=== PATIENT | female | born 1965 | race Caucasian/White ===

== ENCOUNTER 2016-11-27 23:57 | Emergency (ER) | payer OTHER ==
--- NOTE | 2016-11-28 02:07 | ED ORDER SUMMARY ---
..... Patient: APRIL HALEY OrderSheet [facility] VisitID: [id number] [address] [place] [address] 51y, F Registration Date/Time: 11/28/2016 ORDER SHEET Weight: 90.7 kg (stated) Allergies: Penicillins GENERAL ORDERS: Finger Left (2nd) Urgent (00:19 11/28/2016 Byron Cochran per protocol) (Ack 0:26 RKaruga) (1:00 GUnger) Splint (UE) (Left) (Metal / foam) (02:11/28/2016 Fang Borden) (2:20 Tone) MEDICATION ORDERS: IV FLUIDS: ORDER SHEET NOTES: [Electronically signed by Aziza Campbell R.N. (02:11/28/2016)] [Electronically signed by Gian London Dr. (10:09 11/28/2016)] [Electronically locked/signed by Aziza Campbell R.N. (:11/28/2016)]
--- NOTE | 2016-11-28 02:07 | ED CLINICAL REPORT ---
Clinical Report - Physicians/Mid Levels [facility] [address] [place] [address] 11/28/2016 0:04 [id number] Time Seen: 00:30; initial patient contact. Arrived- By private vehicle. Historian- patient. HISTORY OF PRESENT ILLNESS Chief Complaint: Injury to the left middle finger. The injury happened just prior to arrival. Occurred at work. The patient sustained a crush injury- dropped heavy object on hand. Patient is experiencing mild pain. Patient denies injury to the head or neck. REVIEW OF SYSTEMS No swelling, tingling or numbness. All systems otherwise negative, except as recorded above. PAST HISTORY Adenoidectomy. . Knee Surgery. Tonsillectomy. Tubal Ligation. The patient's dominant hand is the right. Medications: None. Allergies: Penicillins. Definite Moderate(hives) (breaks out in hives with injection can take PCN pills). SOCIAL HISTORY Current every day smoker. ADDITIONAL NOTES The nursing notes have been reviewed. PHYSICAL EXAM Vital Signs: 11/28/2016 00:11 BP: 127/72. HR: 65. RR: 18. O2 saturation: 100%. Temp: 98.2 F. Pain level now: 4/10. Have been reviewed as normal. Appearance: Alert. Oriented X3. No acute distress. Skin: Skin warm and dry. Skin intact. Extremities: Left middle finger: of the DIP joint: limited movement secondary to pain (diminished flexion and extension). Neurovascular intact distally. Neuro, Vascular and Tendons: Vascular status intact. Sensation intact. Motor intact. Tendon function intact. Neuro: No motor deficit. No sensory deficit. LABS, X-RAYS, AND EKG Lt UE Digits X-ray: (Mild lateral displacement of the 3rd digit distal phalynx). Views: AP, lateral and oblique. Technique: good. The X-rays were independently viewed by me and interpreted contemporaneously by me. Prior films were not available for comparison. PROGRESS AND PROCEDURES Digital Nerve Block - Finger: Time: 02:04. Per protocol, time-out completed immediately before the procedure. Digital nerve block performed on the left middle finger. Web space approach utilized. Landmarks identified. Skin prepped. Total volume of 3 mL 2% Lidocaine and 0.5% Marcaine infiltrated using a 27-gauge needle. Patient cooperative during procedure. No complications encountered. Excellent anesthesia achieved. Course of Care: Attempted a reduction, not successful, low suspicion for actual dislocation, likely a ligamentous injury. Disposition: Discharged home in good and improved condition. Condition: good. CLINICAL IMPRESSION Dislocation of the distal interphalangeal joint of the left middle finger. INSTRUCTIONS Apply ice for 20 minutes four times a day until better. Don't apply ice directly to skin. Prescription Medications: Hydrocodone/APAP 5mg / 325mg: take 1 orally every 6 hours as needed for pain. Dispense fifteen (15). No refill. Diclofenac 50 mg tablets: take 1 tablet orally every 8 hours as needed for pain or stiffness. Dispense thirty (30). No refill. Follow-up with: [facility], , [address], , [place], [id number] Follow up in about two days. Call for an appointment. (Electronically signed by Gina London Dr. 11/28/2016 10:09)
--- NOTE | 2016-11-28 02:07 | ED CLINICAL REPORT ---
Clinical Report - Physicians/Mid Levels [facility] [address] [place] [address] 11/28/2016 0:04 [id number] Time Seen: 00:30; initial patient contact. Arrived- By private vehicle. Historian- patient. HISTORY OF PRESENT ILLNESS Chief Complaint: Injury to the left middle finger. The injury happened just prior to arrival. Occurred at work. The patient sustained a crush injury- dropped heavy object on hand. Patient is experiencing mild pain. Patient denies injury to the head or neck. REVIEW OF SYSTEMS No swelling, tingling or numbness. All systems otherwise negative, except as recorded above. PAST HISTORY Adenoidectomy. . Knee Surgery. Tonsillectomy. Tubal Ligation. The patient's dominant hand is the right. Medications: None. Allergies: Penicillins. Definite Moderate(hives) (breaks out in hives with injection can take PCN pills). SOCIAL HISTORY Current every day smoker. ADDITIONAL NOTES The nursing notes have been reviewed. PHYSICAL EXAM Vital Signs: 11/28/2016 00:11 BP: 127/72. HR: 65. RR: 18. O2 saturation: 100%. Temp: 98.2 F. Pain level now: 4/10. Have been reviewed as normal. Appearance: Alert. Oriented X3. No acute distress. Skin: Skin warm and dry. Skin intact. Extremities: Left middle finger: of the DIP joint: limited movement secondary to pain (diminished flexion and extension). Neurovascular intact distally. Neuro, Vascular and Tendons: Vascular status intact. Sensation intact. Motor intact. Tendon function intact. Neuro: No motor deficit. No sensory deficit. LABS, X-RAYS, AND EKG Lt UE Digits X-ray: (Mild lateral displacement of the 3rd digit distal phalynx). Views: AP, lateral and oblique. Technique: good. The X-rays were independently viewed by me and interpreted contemporaneously by me. Prior films were not available for comparison. PROGRESS AND PROCEDURES Digital Nerve Block - Finger: Time: 02:04. Per protocol, time-out completed immediately before the procedure. Digital nerve block performed on the left middle finger. Web space approach utilized. Landmarks identified. Skin prepped. Total volume of 3 mL 2% Lidocaine and 0.5% Marcaine infiltrated using a 27-gauge needle. Patient cooperative during procedure. No complications encountered. Excellent anesthesia achieved. Course of Care: Attempted a reduction, not successful, low suspicion for actual dislocation, likely a ligamentous injury. Disposition: Discharged home in good and improved condition. Condition: good. CLINICAL IMPRESSION Dislocation of the distal interphalangeal joint of the left middle finger. INSTRUCTIONS Apply ice for 20 minutes four times a day until better. Don't apply ice directly to skin. Prescription Medications: Hydrocodone/APAP 5mg / 325mg: take 1 orally every 6 hours as needed for pain. Dispense fifteen (15). No refill. Diclofenac 50 mg tablets: take 1 tablet orally every 8 hours as needed for pain or stiffness. Dispense thirty (30). No refill. Follow-up with: [facility], , [address], , [place], [phone] Follow up in about two days. Call for an appointment. (Electronically signed by Gian London Dr. 11/28/2016 10:09)
--- NOTE | 2016-11-28 02:07 | ED NURSING NOTES ---
Clinical Report - Nurses [place] [address] [place] [address] 11/28/2016 0:04 [id number] Triage time 00:11. Acuity: LEVEL 4. Chief Complaint: INJURY TO LEFT HAND. --00:17 Aziza Campbell R.N. 00:11 11/28/16. BP: 127/72 taken on the right arm, while sitting. HR: 65 (regular and normal rate). RR: 18 (regular and unlabored). O2 saturation: 100% on room air. Temp: 98.2 F (oral). Pain level now: 10/02. --00:17 Aziza Campbell R.N. Weight: 90.7 kg stated. Height/Length: 67 inches Per Patient. BMI: 31.3. --00:13 Aziza Campbell R.N. Medications None. --00:14 Aziza Campbell R.N. Allergies Penicillins. Definite Moderate(hives) (breaks out in hives with injection can take PCN pills) --00:15 Aziza Campbell R.N. History Arrived by private vehicle. Historian: patient. Unaccompanied. This occurred (at about 2200 PM). Mechanism of injury: she sustained a crush injury (crushed between lots of thick oak planks at work). 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 PAST MEDICAL HX: Tetanus status: unknown. Immunizations: up-to-date. The patient is post-menopausal. SOCIAL HX: Heavy tobacco smoker (cigarette)- 1 pack per day. No alcohol use or drug use. No infectious disease exposure. ABUSE ASSESSMENT: No report of abuse. SELF HARM ASSESSMENT: A self harm assessment was performed. The patient answered "no" to the question "Have you recently felt down, depressed, or hopeless?", "Have you noticed less interest or pleasure in doing things?", "Do you have thoughts of harming or killing yourself?", "Are you here because you tried to hurt yourself?", "Have you ever tried to hurt yourself before today?", "Have you recently had thoughts about harming or killing others?" and "Do you have any dangerous items in your possession?". FALL RISK ASSESSMENT: Fall risk assessment completed. No fall risk identified. NUTRITIONAL RISK ASSESSMENT: The nutritional risk assessment revealed no deficiencies. FUNCTIONAL ASSESSMENT: Functional assessment: no impairments noted. LEARNING NEEDS ASSESSMENT: The learning needs assessment revealed no barriers. SKIN INTEGRITY ASSESSMENT: Skin integrity risk assessment completed. No skin integrity risk identified. --00:17 Aziza Campbell R.N. ADDITIONAL SURGERIES: Adenoidectomy. . Knee Surgery. Tonsillectomy. Tubal Ligation. --00:16 Aziza Campbell R.N. Interventions ID band on patient. --00:17 Aziza Campbell R.N. PHYSICAL ASSESSMENT Ambulatory to room. GENERAL / NEURO / PSYCH: Oriented X 4. Alert. Appears in no acute distress. EXTREMITIES: Capillary refill is less than 2 seconds in the extremities. Extremity pulses are within normal limits. Extremities exhibit normal ROM. Neuro-vascular status intact to the extremity. Left hand: deformity (left middle finger). SKIN: Skin intact. Skin is warm and dry. --00:18 Aziza Campbell R.N. NURSING PROGRESS NOTES Two patient identifiers checked. Call light placed in reach. Side rails up x 1. Bed placed in lowest position. Brakes of bed on. Patient ready for evaluation- chart flagged. --00:18 Aziza Campbell R.N. Metal and aluminum-foam finger splint applied to left middle finger by [employer] (0215). --02:21 Michelle Escobar. DISPOSITION / DISCHARGE Condition at departure: improved and stable. No learning barriers present. Discharge instructions provided and reviewed with the patient. Reviewed medication(s) side effects, precautions, dosing and course information. Prescription(s) given to the patient. Reviewed referral to an orthopedic surgeon. Patient verbalized understanding. Written instructions provided in Haitian. The patient was discharged home and unaccompanied at time of discharge. She left the Emergency Department ambulatory and via private vehicle. Patient driving. --02:27 Aziza Campbell R.N. 02:25 11/28/16. BP: 137/61. HR: 82 (regular and normal rate). RR: 18 (regular and unlabored). O2 saturation: 100% on room air. Temp: deferred. Pain level now: 08/04. --02:27 Aziza Campbell R.N. Departure time: 220. --02:27 Aziza Campbell R.N. Locked/Released at 11/28/2016 2:27 by Aziza Campbell R.N.
--- NOTE | 2016-11-28 02:07 | ED NURSING NOTES ---
Clinical Report - Nurses [place] [address] [place] [address] 11/28/2016 0:04 [id number] TRI[facility] Triage time 00:11. Acuity: LEVEL 4. Chief Complaint: INJURY TO LEFT HAND. --00:17 Aziza Campbell R.N. 00:11 11/28/16. BP: 127/72 taken on the right arm, while sitting. HR: 65 (regular and normal rate). RR: 18 (regular and unlabored). O2 saturation: 100% on room air. Temp: 98.2 F (oral). Pain level now: 10/02. --00:17 Aziza Campbell R.N. Weight: 90.7 kg stated. Height/Length: 67 inches Per Patient. BMI: 31.3. --00:13 Aziza Campbell R.N. Medications None. --00:14 Aziza Campbell R.N. Allergies Penicillins. Definite Moderate(hives) (breaks out in hives with injection can take PCN pills) --00:15 Aziza Campbell R.N. History Arrived by private vehicle. Historian: patient. Unaccompanied. This occurred (at about 2200 PM). Mechanism of injury: she sustained a crush injury (crushed between lots of thick oak planks at work). 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 PAST MEDICAL HX: Tetanus status: unknown. Immunizations: up-to-date. The patient is post-menopausal. SOCIAL HX: Heavy tobacco smoker (cigarette)- 1 pack per day. No alcohol use or drug use. No infectious disease exposure. ABUSE ASSESSMENT: No report of abuse. SELF HARM ASSESSMENT: A self harm assessment was performed. The patient answered "no" to the question "Have you recently felt down, depressed, or hopeless?", "Have you noticed less interest or pleasure in doing things?", "Do you have thoughts of harming or killing yourself?", "Are you here because you tried to hurt yourself?", "Have you ever tried to hurt yourself before today?", "Have you recently had thoughts about harming or killing others?" and "Do you have any dangerous items in your possession?". FALL RISK ASSESSMENT: Fall risk assessment completed. No fall risk identified. NUTRITIONAL RISK ASSESSMENT: The nutritional risk assessment revealed no deficiencies. FUNCTIONAL ASSESSMENT: Functional assessment: no impairments noted. LEARNING NEEDS ASSESSMENT: The learning needs assessment revealed no barriers. SKIN INTEGRITY ASSESSMENT: Skin integrity risk assessment completed. No skin integrity risk identified. --00:17 Aziza Campbell R.N. ADDITIONAL SURGERIES: Adenoidectomy. . Knee Surgery. Tonsillectomy. Tubal Ligation. --00:16 Aziza Campbell R.N. Interventions ID band on patient. --00:17 Aziza Campbell R.N. PHYSICAL ASSESSMENT Ambulatory to room. GENERAL / NEURO / PSYCH: Oriented X 4. Alert. Appears in no acute distress. EXTREMITIES: Capillary refill is less than 2 seconds in the extremities. Extremity pulses are within normal limits. Extremities exhibit normal ROM. Neuro-vascular status intact to the extremity. Left hand: deformity (left middle finger). SKIN: Skin intact. Skin is warm and dry. --00:18 Aziza Campbell R.N. NURSING PROGRESS NOTES Two patient identifiers checked. Call light placed in reach. Side rails up x 1. Bed placed in lowest position. Brakes of bed on. Patient ready for evaluation- chart flagged. --00:18 Aziza Campbell R.N. Metal and aluminum-foam finger splint applied to left middle finger by [employer] (0215). --02:21 Michelle Escobar. DISPOSITION / DISCHARGE Condition at departure: improved and stable. No learning barriers present. Discharge instructions provided and reviewed with the patient. Reviewed medication(s) side effects, precautions, dosing and course information. Prescription(s) given to the patient. Reviewed referral to an orthopedic surgeon. Patient verbalized understanding. Written instructions provided in Danish. The patient was discharged home and unaccompanied at time of discharge. She left the Emergency Department ambulatory and via private vehicle. Patient driving. --02:27 Aziza Campbell R.N. 02:25 11/28/16. BP: 137/61. HR: 82 (regular and normal rate). RR: 18 (regular and unlabored). O2 saturation: 100% on room air. Temp: deferred. Pain level now: 08/04. --02:27 Aziza Campbell R.N. Departure time: 220. --02:27 Aziza Campbell R.N. Locked/Released at 11/28/2016 2:27 by Aziza Campbell R.N.
--- NOTE | 2016-11-28 02:07 | ED ORDER SUMMARY ---
..... Patient: APRIL HALEY OrderSheet [facility] VisitID: [id number] [address] [place] [address] 51y, F Registration Date/Time: 11/28/2016 ORDER SHEET Weight: 90.7 kg (stated) Allergies: Penicillins GENERAL ORDERS: Finger Left (2nd) Urgent (00:19 11/28/2016 Byron Cochran per protocol) (Ack 0:26 RKaruga) (1:00 GUnger) Splint (UE) (Left) (Metal / foam) (02:11/28/2016 Fang Borden) (2:20 Tone) MEDICATION ORDERS: IV FLUIDS: ORDER SHEET NOTES: [Electronically signed by Aziza Campbell R.N. (02:11/28/2016)] [Electronically signed by Gian London Dr. (10:09 11/28/2016)] [Electronically locked/signed by Aziza Campbell R.N. (:11/28/2016)]
--- NOTE | 2016-11-28 06:44 | DIAGNOSTIC IMAGING REPORT ---
PROCEDURE: XR FINGER - LEFT (third finger). INDICATION: TRAUMA/INJURY TECHNIQUE: Three views. COMPARISON: None. FINDINGS: There are mild degenerative changes of the distal interphalangeal joint. Osseous structures and joint spaces are otherwise normal. No evidence of acute process or fracture. IMPRESSION: 1. Negative left third finger.
--- NOTE | 2016-11-28 10:09 | ED MED RECONCILIATION SUMMARY ---
Patient: APRIL HALEY Medication Reconciliation Report [facility] VisitID: [id number] [address] [place] [address] 51y, F Registration Date/Time: 11/28/2016 Weight: 90.7 kg Height/Length: 67 in. BMI: 31.3 ALLERGIES: Penicillins The patient's Home Medications are listed below: NONE. The source(s) of the original Home Medication information: Not obtained. The following Medications were given to the patient in the Emergency Department: None. The following Medications were prescribed to the patient: Hydrocodone/APAP 5mg / 325mg: take 1 orally every 6 hours as needed for pain. Dispense fifteen (15). No refill. -- Gian London Dr. Diclofenac 50 mg tablets: take 1 tablet orally every 8 hours as needed for pain or stiffness. Dispense thirty (30). No refill. -- Gian London Dr.
--- NOTE | 2016-11-28 10:09 | ED MAR SUMMARY ---
..... Medication Administration Record [facility] [address] [place], [place] [id number] Patient: JANNY HALEYKIMO Ramirez Visit ID: [id number] 51y, F Weight: 90.7 kg Height/Length: 67 in BMI: 31.3 ALLERGIES: Penicillins
--- NOTE | 2016-11-28 10:09 | ED MAR SUMMARY ---
..... Medication Administration Record [facility] [address] [place], [place] [id number] Patient: JANNY HALEYKIMO Ramirez Visit ID: [id number] 51y, F Weight: 90.7 kg Height/Length: 67 in BMI: 31.3 ALLERGIES: Penicillins
--- NOTE | 2016-11-28 10:09 | ED DISCHARGE INSTRUCTIONS ---
Patient: APRIL HALEY General Instructions [facility] VisitID: [id number] [address] [place], [place] [id number] 51y, F Registration Date/Time: 11/28/2016 Dislocation of the distal interphalangeal joint of the left middle finger. INSTRUCTIONS Apply ice for 20 minutes four times a day until better. Don't apply ice directly to skin. Prescription Medications: Hydrocodone/APAP 5mg / 325mg: take 1 orally every 6 hours as needed for pain. Dispense fifteen (15). No refill. Diclofenac 50 mg tablets: take 1 tablet orally every 8 hours as needed for pain or stiffness. Dispense thirty (30). No refill. Follow-up with: [facility], , [address] [place], [id number] Follow up in about two days. Call for an appointment. ADDITIONAL INFORMATION Dislocation:Finger [Reduced] A dislocated finger occurs when the ligaments that hold the joint together are torn allowing the bones to move apart and become stuck out of place. This causes pain, swelling, and bruising. Sometimes there is also a small "chip" fracture. Once the joint is aligned again, it will take about six weeks for the ligaments to heal. During this time, the finger should be protected from re-injury. "Saravanan Tape" secures the injured finger to the one next to it. Saravanan tape allows motion of the joint, while protecting it from dislocating again. Saravanan tape can be left in place for up to six weeks. Hand exercises may be prescribed at your follow-up visit to speed healing and maintain function. Most finger dislocations regain full function. But, it may take 12-18 months before all discomfort and swelling go away and full function returns. Home Care: 1) Keep your hand elevated to reduce pain and swelling. When sitting or lying down elevate your arm above the level of your heart. You can do this by placing your arm on a pillow that rests on your chest or on a pillow at your side. This is most important during the first 48 hours after injury. 2) Apply an ice pack (ice cubes in a plastic bag, wrapped in a towel) over the injured area for 20 minutes every 1-2 hours the first day. Continue with ice packs 3-4 times a day for the next two days, then as needed for the relief of pain and swelling. 3) If you have a removable splint , you may take it off to bathe, then reapply it. If you have a permanent splint , cover the entire hand with a plastic bag and seal it at the top with a rubber band before bathing. 4) If saravanan tape was applied and it becomes wet or dirty, change it. You may replace it with paper, plastic or cloth tape. Cloth tape and paper tapes must be kept dry. 6) You may use acetaminophen (Tylenol) or ibuprofen (Motrin, Advil) to control pain, unless another pain medicine was prescribed. [ NOTE : If you have chronic liver or kidney disease or ever had a stomach ulcer or GI bleeding, talk with your doctor before using these medicines.] 7) No sports or P.E. until cleared by your doctor. Follow Up with your doctor in one week or as advised. Splints should not be left in place longer than three weeks to avoid stiffness and loss of joint function. It is important that you see the referral doctor to determine how long to your splint in place and when to begin hand exercises. [NOTE: Any X-rays taken will be reviewed by a radiologist. You will be notified of any new findings that may affect your care.] Get Prompt Medical Attention if any of the following occur: -- Pain or swelling increases -- Redness, warmth or drainage of the injured finger -- Finger becomes cold, blue, numb or tingly Hydrocodone Bitartrate, Acetaminophen Oral tablet What is this medicine? ACETAMINOPHEN; HYDROCODONE (a set a JAVID aundrea fen; tevin droe KOE done) is a pain reliever. It is used to treat mild to moderate pain. How should I use this medicine? Take this medicine by mouth. Swallow it with a full glass of water. Follow the directions on the prescription label. If the medicine upsets your stomach, take the medicine with food or milk. Do not take more than you are told to take. Talk to your commercial escrow assistant regarding the use of this medicine in children. This medicine is not approved for use in children. What side effects may I notice from receiving this medicine? Side effects that you should report to your doctor or health child care coordinator as soon as possible: allergic reactions like skin rash, itching or hives, swelling of the face, lips, or tongue breathing problems confusion feeling faint or lightheaded, falls stomach pain yellowing of the eyes or skin Side effects that usually do not require medical attention (report to your doctor or health child care coordinator if they continue or are bothersome): nausea, vomiting stomach upset What may interact with this medicine? alcohol antihistamines isoniazid medicines for depression, anxiety, or psychotic disturbances medicines for sleep muscle relaxants naltrexone narcotic medicines (opiates) for pain phenobarbital ritonavir tramadol What if I miss a dose? If you miss a dose, take it as soon as you can. If it is almost time for your next dose, take only that dose. Do not take double or extra doses. Where should I keep my medicine? Keep out of the reach of children. This medicine can be abused. Keep your medicine in a safe place to protect it from theft. Do not share this medicine with anyone. Selling or giving away this medicine is dangerous and against the law. Store at room temperature between 15 and 30 degrees C (59 and 86 degrees F). Protect from light. Keep container tightly closed. Throw away any unused medicine after the expiration date. Discard unused medicine and used packaging carefully. Pets and children can be harmed if they find used or lost packages. What should I tell my health care provider before I take this medicine? They need to know if you have any of these conditions: brain tumor Crohn's disease, inflammatory bowel disease, or ulcerative colitis drink more than 3 alcohol-containing drinks per day drug abuse or addiction head injury heart or circulation problems kidney disease or problems going to the bathroom liver disease lung disease, asthma, or breathing problems an unusual or allergic reaction to acetaminophen, hydrocodone, other opioid analgesics, other medicines, foods, dyes, or preservatives or trying to get breast-feeding What should I watch for while using this medicine? Tell your doctor or health child care coordinator if your pain does not go away, if it gets worse, or if you have new or a different type of pain. You may develop tolerance to the medicine. Tolerance means that you will need a higher dose of the medicine for pain relief. Tolerance is normal and is expected if you take the medicine for a long time. Do not suddenly stop taking your medicine because you may develop a severe reaction. Your body becomes used to the medicine. This does NOT mean you are addicted. Addiction is a behavior related to getting and using a drug for a non-medical reason. If you have pain, you have a medical reason to take pain medicine. Your doctor will tell you how much medicine to take. If your doctor wants you to stop the medicine, the dose will be slowly lowered over time to avoid any side effects. You may get drowsy or dizzy when you first start taking the medicine or change doses. Do not drive, use machinery, or do anything that may be dangerous until you know how the medicine affects you. Stand or sit up slowly. There are different types of narcotic medicines (opiates) for pain. If you take more than one type at the same time, you may have more side effects. Give your health care provider a list of all medicines you use. Your doctor will tell you how much medicine to take. Do not take more medicine than directed. Call emergency for help if you have problems breathing. The medicine will cause constipation. Try to have a bowel movement at least every 2 to 3 days. If you do not have a bowel movement for 3 days, call your doctor or health child care coordinator. Too much acetaminophen can be very dangerous. Do not take Tylenol (acetaminophen) or medicines that contain acetaminophen with this medicine. Many non-prescription medicines contain acetaminophen. Always read the labels carefully. You have been given the following additional information: Dislocated Finger Hydrocodone Bitartrate, Acetaminophen Oral tablet (Electronically signed by Gian London Dr. 11/28/2016 10:09)
--- NOTE | 2016-11-28 10:09 | ED DISCHARGE INSTRUCTIONS ---
Patient: APRIL HALEY General Instructions [facility] VisitID: [id number] [address] [place] [place], [place] [id number] 51y, F Registration Date/Time: 11/28/2016 Dislocation of the distal interphalangeal joint of the left middle finger. INSTRUCTIONS Apply ice for 20 minutes four times a day until better. Don't apply ice directly to skin. Prescription Medications: Hydrocodone/APAP 5mg / 325mg: take 1 orally every 6 hours as needed for pain. Dispense fifteen (15). No refill. Diclofenac 50 mg tablets: take 1 tablet orally every 8 hours as needed for pain or stiffness. Dispense thirty (30). No refill. Follow-up with: [facility], , [address] [place], [id number] Follow up in about two days. Call for an appointment. ADDITIONAL INFORMATION Dislocation:Finger [Reduced] A dislocated finger occurs when the ligaments that hold the joint together are torn allowing the bones to move apart and become stuck out of place. This causes pain, swelling, and bruising. Sometimes there is also a small "chip" fracture. Once the joint is aligned again, it will take about six weeks for the ligaments to heal. During this time, the finger should be protected from re-injury. "Saravanan Tape" secures the injured finger to the one next to it. Saravanan tape allows motion of the joint, while protecting it from dislocating again. Saravanan tape can be left in place for up to six weeks. Hand exercises may be prescribed at your follow-up visit to speed healing and maintain function. Most finger dislocations regain full function. But, it may take 12-18 months before all discomfort and swelling go away and full function returns. Home Care: 1) Keep your hand elevated to reduce pain and swelling. When sitting or lying down elevate your arm above the level of your heart. You can do this by placing your arm on a pillow that rests on your chest or on a pillow at your side. This is most important during the first 48 hours after injury. 2) Apply an ice pack (ice cubes in a plastic bag, wrapped in a towel) over the injured area for 20 minutes every 1-2 hours the first day. Continue with ice packs 3-4 times a day for the next two days, then as needed for the relief of pain and swelling. 3) If you have a removable splint , you may take it off to bathe, then reapply it. If you have a permanent splint , cover the entire hand with a plastic bag and seal it at the top with a rubber band before bathing. 4) If saravanan tape was applied and it becomes wet or dirty, change it. You may replace it with paper, plastic or cloth tape. Cloth tape and paper tapes must be kept dry. 6) You may use acetaminophen (Tylenol) or ibuprofen (Motrin, Advil) to control pain, unless another pain medicine was prescribed. [ NOTE : If you have chronic liver or kidney disease or ever had a stomach ulcer or GI bleeding, talk with your doctor before using these medicines.] 7) No sports or P.E. until cleared by your doctor. Follow Up with your doctor in one week or as advised. Splints should not be left in place longer than three weeks to avoid stiffness and loss of joint function. It is important that you see the referral doctor to determine how long to your splint in place and when to begin hand exercises. [NOTE: Any X-rays taken will be reviewed by a radiologist. You will be notified of any new findings that may affect your care.] Get Prompt Medical Attention if any of the following occur: -- Pain or swelling increases -- Redness, warmth or drainage of the injured finger -- Finger becomes cold, blue, numb or tingly Hydrocodone Bitartrate, Acetaminophen Oral tablet What is this medicine? ACETAMINOPHEN; HYDROCODONE (a set a JVAID aundrea fen; tevin droe KOE done) is a pain reliever. It is used to treat mild to moderate pain. How should I use this medicine? Take this medicine by mouth. Swallow it with a full glass of water. Follow the directions on the prescription label. If the medicine upsets your stomach, take the medicine with food or milk. Do not take more than you are told to take. Talk to your holiday detector operator regarding the use of this medicine in children. This medicine is not approved for use in children. What side effects may I notice from receiving this medicine? Side effects that you should report to your doctor or health before and after school daycare worker as soon as possible: allergic reactions like skin rash, itching or hives, swelling of the face, lips, or tongue breathing problems confusion feeling faint or lightheaded, falls stomach pain yellowing of the eyes or skin Side effects that usually do not require medical attention (report to your doctor or health before and after school daycare worker if they continue or are bothersome): nausea, vomiting stomach upset What may interact with this medicine? alcohol antihistamines isoniazid medicines for depression, anxiety, or psychotic disturbances medicines for sleep muscle relaxants naltrexone narcotic medicines (opiates) for pain phenobarbital ritonavir tramadol What if I miss a dose? If you miss a dose, take it as soon as you can. If it is almost time for your next dose, take only that dose. Do not take double or extra doses. Where should I keep my medicine? Keep out of the reach of children. This medicine can be abused. Keep your medicine in a safe place to protect it from theft. Do not share this medicine with anyone. Selling or giving away this medicine is dangerous and against the law. Store at room temperature between 15 and 30 degrees C (59 and 86 degrees F). Protect from light. Keep container tightly closed. Throw away any unused medicine after the expiration date. Discard unused medicine and used packaging carefully. Pets and children can be harmed if they find used or lost packages. What should I tell my health care provider before I take this medicine? They need to know if you have any of these conditions: brain tumor Crohn's disease, inflammatory bowel disease, or ulcerative colitis drink more than 3 alcohol-containing drinks per day drug abuse or addiction head injury heart or circulation problems kidney disease or problems going to the bathroom liver disease lung disease, asthma, or breathing problems an unusual or allergic reaction to acetaminophen, hydrocodone, other opioid analgesics, other medicines, foods, dyes, or preservatives or trying to get breast-feeding What should I watch for while using this medicine? Tell your doctor or health before and after school daycare worker if your pain does not go away, if it gets worse, or if you have new or a different type of pain. You may develop tolerance to the medicine. Tolerance means that you will need a higher dose of the medicine for pain relief. Tolerance is normal and is expected if you take the medicine for a long time. Do not suddenly stop taking your medicine because you may develop a severe reaction. Your body becomes used to the medicine. This does NOT mean you are addicted. Addiction is a behavior related to getting and using a drug for a non-medical reason. If you have pain, you have a medical reason to take pain medicine. Your doctor will tell you how much medicine to take. If your doctor wants you to stop the medicine, the dose will be slowly lowered over time to avoid any side effects. You may get drowsy or dizzy when you first start taking the medicine or change doses. Do not drive, use machinery, or do anything that may be dangerous until you know how the medicine affects you. Stand or sit up slowly. There are different types of narcotic medicines (opiates) for pain. If you take more than one type at the same time, you may have more side effects. Give your health care provider a list of all medicines you use. Your doctor will tell you how much medicine to take. Do not take more medicine than directed. Call emergency for help if you have problems breathing. The medicine will cause constipation. Try to have a bowel movement at least every 2 to 3 days. If you do not have a bowel movement for 3 days, call your doctor or health before and after school daycare worker. Too much acetaminophen can be very dangerous. Do not take Tylenol (acetaminophen) or medicines that contain acetaminophen with this medicine. Many non-prescription medicines contain acetaminophen. Always read the labels carefully. You have been given the following additional information: Dislocated Finger Hydrocodone Bitartrate, Acetaminophen Oral tablet (Electronically signed by Gian London Dr. 11/28/2016 10:09)
--- NOTE | 2016-11-28 10:09 | ED MED RECONCILIATION SUMMARY ---
Patient: APRIL HALEY Medication Reconciliation Report [facility] VisitID: [id number] [address] [place] [address] 51y, F Registration Date/Time: 11/28/2016 Weight: 90.7 kg Height/Length: 67 in. BMI: 31.3 ALLERGIES: Penicillins The patient's Home Medications are listed below: NONE. The source(s) of the original Home Medication information: Not obtained. The following Medications were given to the patient in the Emergency Department: None. The following Medications were prescribed to the patient: Hydrocodone/APAP 5mg / 325mg: take 1 orally every 6 hours as needed for pain. Dispense fifteen (15). No refill. -- Gian London Dr. Diclofenac 50 mg tablets: take 1 tablet orally every 8 hours as needed for pain or stiffness. Dispense thirty (30). No refill. -- Gian London Dr.
== END 2016-11-28 02:21 | disposition home or self-care (01) ==
LOC: ED SRH 23:57
DX: S63.293A Dislocation of distal interphalangeal joint of left middle finger, initial encounter (principal); W23.1XXA Caught, crushed, jammed, or pinched between stationary objects, initial encounter; Y93.89 Activity, other specified; Y92.89 Other specified places as the place of occurrence of the external cause; Y99.0 Civilian activity done for income or pay; F17.210 Nicotine dependence, cigarettes, uncomplicated; Z88.0 Allergy status to penicillin